=== PATIENT | female | born 1940 | race Two or more races ===

== ENCOUNTER 2017-10-31 09:03 | Outpatient (CLI) | payer OTHER ==
[~2017-10-31 09:03] MED LIST: ADULT ASPIRIN81 MG; CALCIUM1 TAB; CALCIUM1 TAB PO
== END 2017-10-31 14:28 | disposition home or self-care (01) ==
LOC: MAMO-SONO 09:03
DX: Z12.31 Encounter for screening mammogram for malignant neoplasm of breast (principal); Z87.898 Personal history of other specified conditions; N63.10 Unspecified lump in the right breast, unspecified quadrant; N63.20 Unspecified lump in the left breast, unspecified quadrant

== ENCOUNTER 2017-11-09 11:40 | Outpatient (CLI) | payer OTHER | END 2017-11-09 12:00 | disposition home or self-care (01) | LOC: NUCLEAR 11:40 | DX: M85.88 Other specified disorders of bone density and structure, other site (principal); M81.0 Age-related osteoporosis without current pathological fracture ==

== ENCOUNTER 2018-04-18 12:13 | Outpatient (CLI) | payer OTHER | END 2018-04-18 17:00 | disposition home or self-care (01) | LOC: RAD 12:13 | DX: M54.2 Cervicalgia (principal); M13.88 Other specified arthritis, other site; J32.8 Other chronic sinusitis ==

== ENCOUNTER 2018-04-27 11:15 | Outpatient (CLI) | payer OTHER | END 2018-04-27 11:39 | disposition home or self-care (01) | LOC: MAMO-SONO 11:15 | DX: N60.11 Diffuse cystic mastopathy of right breast (principal); N60.12 Diffuse cystic mastopathy of left breast ==

== ENCOUNTER 2018-05-10 13:30 | Outpatient (CLI) | payer OTHER | END 2018-05-10 13:32 | disposition home or self-care (01) | LOC: SONOGRAMA 13:30 | DX: N60.11 Diffuse cystic mastopathy of right breast (principal); N60.12 Diffuse cystic mastopathy of left breast ==

== ENCOUNTER 2024-09-06 08:56 | Outpatient (CLI) | payer OTHER | END 2024-09-06 08:57 | disposition home or self-care (01) | LOC: NUCLEAR 08:56 | PROVIDERS: ATTEND Psychiatry & Neurology Clinical Neurophysiology | DX: G31.84 Mild cognitive impairment of uncertain or unknown etiology (principal) | CPT/HCPCS: 78803; A9557 ==

== ENCOUNTER 2025-06-24 10:45 | Outpatient (CLI) | payer OTHER | END 2025-06-24 10:46 | disposition home or self-care (01) | LOC: NUCLEAR 10:45 | PROVIDERS: ATTEND Internal Medicine | DX: I87.2 Venous insufficiency (chronic) (peripheral) (principal) ==

== ENCOUNTER 2025-06-25 10:24 | Outpatient (CLI) | payer OTHER | END 2025-06-25 10:27 | disposition home or self-care (01) | LOC: NUCLEAR 10:24 | PROVIDERS: ATTEND Internal Medicine | DX: I70.0 Atherosclerosis of aorta (principal) ==